=== PATIENT | female | born 1970 | race African-American/Black ===

== ENCOUNTER 2018-10-26 00:07 | Emergency (ER) | payer OTHER ==
--- NOTE | 2018-10-26 01:20 | PDOC ---
Attending Attestation - HPI HPI: 10/26/18 01:54 The patient is a 48 year old female with a PMH of HTN, HLD, and borderline DM who presents to the ER with chest pain prior to arrival. Patient describes the chest pain as localized on the left side, under the breast that resolved on its own shortly after. Patient had a stress test recently. Denies any symptoms currently. The patient denies shortness of breath, headache and dizziness. Denies fever, chills, nausea, vomit, diarrhea and constipation. Denies dysuria, frequency, urgency and hematuria. Allergies: NKA Past surgical history: None reported. Social history: No reported alcohol, drug or cigarette use. PCP: Dr. Nikunj Jeffery - Physicial Exam PE: 10/26/18 01:54 Agrees with resident's exam. 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
--- NOTE | 2018-10-26 01:24 | PDOC ---
History of Present Illness - General Chief Complaint: Chest Pain Stated Complaint: CHEST PAIN Time Seen by Provider: 10/26/18 01:16 History Source: Patient, Family Exam Limitations: Clinical Condition - History of Present Illness Initial Comments: 10/26/18 02:09 Patient is a 48F with history of HTN, HLD here today complaining of chest pain that onset at midnight tonight. Patient describes a stabbing pain that suddenly onset and lasted for a few minutes before resolving on it's own. No modifying factors. Denies fevers, chills, nausea, vomiting. Denies leg swelling, recent travel, history of blood clots. Patient has normal stress test one year ago, has pcp and cards follow up available. Patient is currently not in pain. Past History - Past Medical History Allergies/Adverse Reactions: Allergies Allergy/AdvReac Type Severity Reaction Status Date / Time No Known Allergies Allergy Verified 10/26/18 00:52 Home Medications: Ambulatory Orders Metoprolol Succinate [Toprol Xl] 50 mg PO DAILY 04/11/14 Aspirin [ASA -] 81 mg PO DAILY 03/11/16 Liraglutide [Saxenda] 3 mg SQ DAILY 03/11/16 Telmisartan/Hydrochlorothiazid [Micardis Hct 40-12.5 mg Tablet] 1 each PO DAILY 03/11/16 Anemia: Yes Asthma: No Cancer: No Cardiac Disorders: No CVA: No COPD: No CHF: No Dementia: No Diabetes: No GI Disorders: No Disorders: No HTN: Yes Hypercholesterolemia: Yes Liver Disease: No Seizures: No Thyroid Disease: No - Surgical History Abdominal Surgery: No Appendectomy: No Cardiac Surgery: No Cholecystectomy: No Lung Surgery: No Neurologic Surgery: No Orthopedic Surgery: Yes ([facility]) - Immunization History Immunization Up to Date: Yes - Suicide/Smoking/Psychosocial Hx Smoking Status: Yes Smoking History: Never smoked Have you smoked in the past 12 months: No Number of Cigarettes Smoked Daily: 2 Information on smoking cessation initiated: No 'Breaking Loose' booklet given: 04/27/13 Hx Alcohol Use: No Drug/Substance Use Hx: No Substance Use Type: None Hx Substance Use Treatment: No Review of Systems - Review of Systems Able to Perform ROS?: Yes Comments:: 10/26/18 02:14 GENERAL/CONSTITUTIONAL: No fever or chills. No weakness. HEAD, EYES, EARS, NOSE AND THROAT: No change in vision. No sore throat. CARDIOVASCULAR: + chest pain or shortness of breath RESPIRATORY: No cough, wheezing, or hemoptysis. GASTROINTESTINAL: No nausea, vomiting, diarrhea or constipation. GENITOURINARY: No dysuria, frequency, or change in urination. MUSCULOSKELETAL: No joint or muscle swelling or pain. No neck or back pain. SKIN: No rash NEUROLOGIC: No headache, vertigo, loss of consciousness, or change in strength/ sensation. HEMATOLOGIC/LYMPHATIC: No anemia, easy bleeding, or history of blood clots. ALLERGIC/IMMUNOLOGIC: No hives or skin allergy. *Physical Exam - Vital Signs Last Vital Signs Temp Pulse Resp BP Pulse Ox 98.1 F 69 18 114/86 99 10/26/18 00:07 10/26/18 00:07 10/26/18 00:07 10/26/18 00:07 10/26/18 00:07 - Physical Exam Comments: 10/26/18 02:14 GENERAL: Awake, alert, and fully oriented, in no acute distress HEAD: No signs of trauma, normocephalic, atraumatic EYES: PERRLA, EOMI, sclera anicteric, conjunctiva clear ENT: Auricles normal inspection, hearing grossly normal, nares patent, oropharynx clear without exudates. Moist mucosa NECK: Normal ROM, supple, no lymphadenopathy, JVD, or masses LUNGS: No distress, speaks full sentences, clear to auscultation bilaterally HEART: Regular rate and rhythm, normal S1 and S2, no murmurs, rubs or gallops, peripheral pulses normal and equal bilaterally. ABDOMEN: Soft, nontender, normoactive bowel sounds. No guarding, no rebound. No masses EXTREMITIES: Normal inspection, Normal range of motion, no edema. No clubbing or cyanosis. NEUROLOGICAL: Cranial nerves II through XII grossly intact. Normal speech, normal gait, no focal sensorimotor deficits SKIN: Warm, Dry, normal turgor, no rashes or lesions noted. Moderate Sedation - Procedure Monitoring Vital Signs: Procedure Monitoring Vital Signs Temperature 98.1 F 10/26/18 00:07 Pulse Rate 69 10/26/18 00:07 Respiratory Rate 18 10/26/18 00:07 Blood Pressure 114/86 10/26/18 00:07 O2 Sat by Pulse Oximetry (%) 99 10/26/18 00:07 ED Treatment Course - LABORATORY CBC & Chemistry Diagram: 10/26/18 01:49 10/26/18 01:49 Medical Decision Making - Medical Decision Making 10/26/18 02:17 Patient is 48F with history of HTN, HLD here today with chest pain. Vitals normal and stable. PERC negative. EKG shows nsr with no st elevations/ depressions. No significant t wave abnormalities, normal axis, normal intervals. 10/26/18 06:07 CXR clear. Trop neg. CBC, CMP reassuring. Patient discharged with primary care and cardiology follow up. *DC/Admit/Observation/Transfer Diagnosis at time of Disposition: Chest pain - Discharge Dispostion Disposition: HOME Condition at time of disposition: Good Decision to Admit order: No - Referrals Referrals: Nikunj Jeffery MD [Primary Care Provider] - - Patient Instructions Printed Discharge Instructions: DI for Atypical Chest Pain Additional Instructions: Please follow up with your primary care doctor tomorrow. Please return if you have any new, worsening or concerning symptoms, especially fever, increasing pain and shortness of breath. - Post Discharge Activity
[2018-10-26 01:48] VITALS: BP 114/86; PULSE 69; TEMP 98.1; BMI 33.6
[2018-10-26 02:08] LABS: INR 0.98 (0.83-1.09); PROTHROMBIN TIME (PATIENT) 11.6 SEC (9.7-13.0)
[2018-10-26 02:33] LABS: HEMATOCRIT 34.1 % (32.4-45.2); HEMOGLOBIN 11.6 GM/dL (10.7-15.3); MCH 28.1 pg (25.7-33.7); MEAN CELL VOLUME 82.6 fl (80-96); MEAN PLT VOLUME 9.3 fl (7.5-11.1); PLATELET COUNT 270 K/MM3 (134-434); RBC 4.13 M/mm3 (3.60-5.2)
[2018-10-26 02:47] LABS: ALBUMIN 3.7 g/dl (3.4-5.0); ALK PHOS 86 U/L (45-117); ANION GAP 4 MMOL/L (8-16); BILIRUBIN,TOTAL 0.2 mg/dL (0.2-1); BLOOD UREA NITROGEN 16 mg/dL (7-18); CALCIUM 8.9 mg/dL (8.5-10.1); CHLORIDE 106 mmol/L (98-107); CO2 30 mmol/L (21-32); CREATININE 0.7 mg/dL (0.55-1.3); GLUCOSE,RANDOM 154 mg/dL (74-106); POTASSIUM 3.6 mmol/L (3.5-5.1); SGOT/AST 12 U/L (15-37); SGPT/ALT 22 U/L (13-61); SODIUM 140 mmol/L (136-145); TOT PROT 7.1 g/dl (6.4-8.2)
--- NOTE | 2018-10-29 18:11 | EKG ---
Test Reason : Blood Pressure : / mmHG Vent. Rate : 071 BPM Atrial Rate : 071 BPM P-R Int : 168 ms QRS Dur : 108 ms QT Int : 418 ms P-R-T Axes : 024 009 018 degrees QTc Int : 454 ms NORMAL SINUS RHYTHM VOLTAGE CRITERIA FOR LEFT VENTRICULAR HYPERTROPHY NONSPECIFIC T WAVE ABNORMALITY ABNORMAL ECG WHEN COMPARED WITH ECG OF 24-DEC-2009 00:10, NO SIGNIFICANT CHANGE WAS FOUND Confirmed by MD MARLON, SYLVIA ([id number]) on 10/29/2018 6:10:31 PM Referred By: Confirmed By:SYLVIA MASON MD
== END 2018-10-26 04:05 | disposition home or self-care (01) ==
LOC: JER 00:07
DX: R07.9 Chest pain, unspecified (principal); I10 Essential (primary) hypertension; E78.5 Hyperlipidemia, unspecified; Z72.0 Tobacco use
CPT/HCPCS: 36415; 71046-TC-FY; 80053; 82550; 82553; 84484; 85027; 85610; 93005; 93010; 99282-25

== ENCOUNTER 2019-06-06 18:33 | Emergency (ER) | payer OTHER ==
[2019-06-06 19:22] VITALS: TEMP 98.7; BMI 36.1
[2019-06-06 20:23] LABS: BASO % 0.8 % (0-2.0); EOS % 2.2 % (0-4.5); HEMOGLOBIN 11.3 GM/dL (10.7-15.3); MCH 26.7 pg (25.7-33.7); MCHC 32.4 g/dl (32.0-36.0); MEAN CELL VOLUME 82.6 fl (80-96); MEAN PLT VOLUME 9.1 fl (7.5-11.1); MONO % 6.2 % (3.8-10.2); NEUT % 67.8 % (42.8-82.8); PLATELET COUNT 282 K/MM3 (134-434); RBC 4.23 M/mm3 (3.60-5.2); RDW 14.2 % (11.6-15.6); WHITE BLOOD COUNT 10.1 K/mm3 (4.0-10.0)
[2019-06-06] MEDS ORDERED: IBUPROFEN 400 MG TABLET (FP) PO ONE ×2 (20:24→20:25)
[2019-06-06 20:54] LABS: ALBUMIN 4.2 g/dl (3.4-5.0); BILIRUBIN,TOTAL 0.2 mg/dL (0.2-1); BLOOD UREA NITROGEN 12.7 mg/dL (7-18); CREATININE 0.6 mg/dL (0.55-1.3); POTASSIUM 3.7 mmol/L (3.5-5.1); TOT PROT 7.7 g/dl (6.4-8.2)
--- NOTE | 2019-06-06 20:59 | PDOC ---
History of Present Illness - General Chief Complaint: Shortness of Breath Stated Complaint: SOB/BACK PAIN Time Seen by Provider: 06/06/19 18:50 History Source: Patient Exam Limitations: No Limitations - History of Present Illness Is this a multiple visit Asthma Patient?: No Timing/Duration: reports: this morning (she awoke with left scapular pain and pain upon dep breaths) Possible Cause: Yes: no prior episodes Modifying Factors: improves with: other (she flew to [facility] over the weekend ) Associated Symptoms: reports: other (left scapular pain that radiates to left side) Past History - Past Medical History Allergies/Adverse Reactions: Allergies Allergy/AdvReac Type Severity Reaction Status Date / Time No Known Allergies Allergy Verified 10/26/18 00:52 Home Medications: Ambulatory Orders Metoprolol Succinate [Toprol Xl] 50 mg PO DAILY 04/11/14 Aspirin [ASA -] 81 mg PO DAILY 03/11/16 Liraglutide [Saxenda] 3 mg SQ DAILY 03/11/16 Telmisartan/Hydrochlorothiazid [Micardis Hct 40-12.5 mg Tablet] 1 each PO DAILY 03/11/16 Anemia: Yes Asthma: No Cancer: No Cardiac Disorders: No CVA: No COPD: No CHF: No Dementia: No Diabetes: No GI Disorders: No Disorders: No HTN: Yes Hypercholesterolemia: Yes Liver Disease: No Seizures: No Thyroid Disease: No - Surgical History Abdominal Surgery: No Appendectomy: No Cardiac Surgery: No Cholecystectomy: No Lung Surgery: No Neurologic Surgery: No Orthopedic Surgery: Yes ([facility]) - Immunization History Immunization Up to Date: Yes - Psycho Social/Smoking Cessation Hx Smoking Status: Yes Smoking History: Current some day smoker Have you smoked in the past 12 months: Yes Number of Cigarettes Smoked Daily: 2 Information on smoking cessation initiated: No 'Breaking Loose' booklet given: 04/27/13 Hx Alcohol Use: No Drug/Substance Use Hx: No Substance Use Type: None Hx Substance Use Treatment: No Respiratory Specific PMHX - Complaint Specific PMHX Hx Bronchitis: No Hx Pneumonia: No Hx Pulmonary Embolus: No Hx TB (Tuberculosis): No Hx Angina: No *Physical Exam - Vital Signs Last Vital Signs Temp Pulse Resp BP Pulse Ox 98.7 F 18 L 22 H 138/88 99 06/06/19 19:10 06/06/19 19:10 06/06/19 19:10 06/06/19 19:10 06/06/19 19:10 - Physical Exam General Appearance: Yes: Nourished, Appropriately Dressed HEENT: positive: Normal Voice Neck: positive: Supple Respiratory/Chest: positive: Lungs Clear Cardiovascular: positive: Regular Rhythm, Regular Rate Gastrointestinal/Abdominal: positive: Soft Musculoskeletal: positive: Normal Inspection Extremity: positive: Normal Range of Motion Integumentary: positive: Normal Color, Warm Neurologic: positive: Fully Oriented, Alert, Motor Strength 12/18 ED Treatment Course - LABORATORY CBC & Chemistry Diagram: 06/06/19 20:07 06/06/19 20:07 - ADDITIONAL ORDERS Additional order review: Laboratory Results 06/06/19 06/06/19 06/06/19 20:07 20:07 20:07 D-Dimer 250 Sodium 140 Potassium 3.7 Chloride 105 Carbon Dioxide 27 Anion Gap 8 BUN 12.7 Creatinine 0.6 Est GFR (CKD-EPI)AfAm 122.32 Est GFR (CKD-EPI)NonAf 105.54 Random Glucose 84 Calcium 9.0 Total Bilirubin 0.2 AST 27 ALT 32 Alkaline Phosphatase 86 Troponin I Total Protein 7.7 Albumin 4.2 Serum , Qual Negative 06/06/19 19:34 D-Dimer Sodium Potassium Chloride Carbon Dioxide Anion Gap BUN Creatinine Est GFR (CKD-EPI)AfAm Est GFR (CKD-EPI)NonAf Random Glucose Calcium Total Bilirubin AST ALT Alkaline Phosphatase Troponin I < 0.02 Total Protein Albumin Serum , Qual 06/06/19 20:07 RBC 4.23 MCV 82.6 MCHC 32.4 RDW 14.2 MPV 9.1 Neutrophils % 67.8 Lymphocytes % 23.0 D Monocytes % 6.2 Eosinophils % 2.2 Basophils % 0.8 - RADIOLOGY Radiology Studies Ordered: Category Date Time Status CHEST PA & LAT [RAD] Stat Radiology 06/06/19 19:30 Taken - Medications Given in the ED: ED Medications Discontinued Medications Generic Name Dose Route Start Last Admin Trade Name Freq PRN Reason Stop Dose Admin Ibuprofen 800 mg 06/06/19 20:24 06/06/19 20:28 Motrin - PO 06/06/19 20:25 800 mg ONCE ONE Administration Medical Decision Making - Medical Decision Making 06/07/19 00:04 49-year-old female has complaint of scapular back pain radiating to the left side and shortness of breath and pleuretic pain upon inspiration. She did take an airplane flight this weekend to [place] and back 06/07/19 00:06 06/07/19 01:14 CAT scan to rule out dissection findings Negative for any thoracic aortic aneurysm or dissection There is a tiny vague infiltrate in the right lower lobe medially. No other pulmonary infiltrates No pleural effusions no pneumothorax or pneumomediastinum The study Is negative for any abdominal aortic aneurysm or dissection fatty liver Normal spleen pancreas, gallbladder, adrenal glands Nonobstructing right renal stone no acute renal abnormality or urinary tract obstruction No free intraperitoneal fluid or free air Osseous and stretch structures are intact pt's work up reveals negative cardiac enzymes, no evidence of pneumothorax,no aneurysm or dissection ekg is NS @ 83 bpm,LVH,prolonged QT imp muscle skeletal Discharge - Discharge Information Problems reviewed: Yes Clinical Impression/Diagnosis: Pleuritic chest pain, Pain of left scapula Muscle strain of left scapular region Qualifiers: Encounter type: initial encounter Qualified Code(s): S46.912A - Strain of unspecified muscle, fascia and tendon at shoulder and upper arm level, left arm , initial encounter Condition: Good Disposition: HOME - Follow up/Referral Referrals: Nikunj Jeffery MD [Primary Care Provider] - - Patient Discharge Instructions Patient Printed Discharge Instructions: DI for Musculoskeletal Pain Additional Instructions: please rest Take Tylenol or NSAIDS for pain relief Return for worsening symptoms - Post Discharge Activity
[2019-06-06] MEDS ORDERED: CYCLOBENZAPRINE HCL 10 MG TABLET (FP) PO ONE (21:12)
[2019-06-06] MEDS ORDERED: CYCLOBENZAPRINE HCL 10 MG TABLET (FP) ONE (21:14)
[2019-06-06 23:09] VITALS: BP 114/76; PULSE 79
[2019-06-06] MEDS ORDERED: SODIUM CHLORIDE 1,000 ML IV STA (23:20)
--- NOTE | 2019-06-12 15:51 | EKG ---
Test Reason : Blood Pressure : / mmHG Vent. Rate : 083 BPM Atrial Rate : 083 BPM P-R Int : 168 ms QRS Dur : 106 ms QT Int : 410 ms P-R-T Axes : 061 000 035 degrees QTc Int : 481 ms NORMAL SINUS RHYTHM POSSIBLE LEFT ATRIAL ENLARGEMENT LEFT VENTRICULAR HYPERTROPHY PROLONGED QT ABNORMAL ECG WHEN COMPARED WITH ECG OF 26-OCT-2018 01:17, T WAVE VARIATION Confirmed by BETSY GTZ MD ([id number]) on 06/12/2019 3:51:19 PM Referred By: Confirmed By:BETSY GTZ MD
== END 2019-06-07 01:41 | disposition home or self-care (01) ==
LOC: JER 18:33
PROC: 3E0337Z Introduction of Electrolytic and Water Balance Substance into Peripheral Vein, Percutaneous Approach (ICD-10-PCS; principal; 2019-06-06)
DX: S46.812A Strain of other muscles, fascia and tendons at shoulder and upper arm level, left arm, initial encounter (principal); R07.89 Other chest pain; X58.XXXA Exposure to other specified factors, initial encounter; Y93.89 Activity, other specified; Y99.8 Other external cause status; I10 Essential (primary) hypertension; E78.00 Pure hypercholesterolemia, unspecified; Z86.2 Personal history of diseases of the blood and blood-forming organs and certain disorders involving the immune mechanism; Z79.82 Long term (current) use of aspirin; F17.210 Nicotine dependence, cigarettes, uncomplicated
CPT/HCPCS: 36415; 71046-TC-FY; 71275-TC; 74178-TC; 80053; 84484; 84703; 85025; 85379; 93005; 93010; 99284-25; J7030

== ENCOUNTER 2019-07-05 08:17 | Emergency (ER) | payer OTHER ==
[2019-07-05 08:28] VITALS: BP 148/79; PULSE 98; TEMP 100.2; BMI 36.6
[2019-07-05] MEDS ORDERED: KETOROLAC TROMETHAMINE 60 MG/2 ML VIAL IM ONE (09:09)
[2019-07-05] MEDS ORDERED: KETOROLAC TROMETHAMINE 60 MG/2 ML VIAL ONE (09:10)
[2019-07-05] MEDS ORDERED: SODIUM CHLORIDE 1,000 ML IV STA (09:17)
[2019-07-05] MEDS ORDERED: DEXAMETHASONE SOD PHOSPHATE 10 MG/1 ML VIAL IM ONE (09:18)
[2019-07-05] MEDS ORDERED: AMPICILLIN NA/SULBACTAM NA 1.5 GM in SODIUM CHLORIDE 100 ML IVPB ONE (09:18)
[2019-07-05] MEDS ORDERED: DEXAMETHASONE SOD PHOSPHATE 10 MG/1 ML VIAL ONE (09:22)
--- NOTE | 2019-07-05 09:44 | PDOC ---
History of Present Illness - General Chief Complaint: Sore Throat Stated Complaint: THROAT PAIN Time Seen by Provider: 07/05/19 08:39 History Source: Patient - History of Present Illness Timing/Duration: reports: yesterday Associated Symptoms: reports: fever/chills, sore throat Past History - Past Medical History Allergies/Adverse Reactions: Allergies Allergy/AdvReac Type Severity Reaction Status Date / Time No Known Allergies Allergy Verified 07/05/19 08:28 Home Medications: Ambulatory Orders Metoprolol Succinate [Toprol Xl] 50 mg PO DAILY 04/11/14 Aspirin [ASA -] 81 mg PO DAILY 03/11/16 Telmisartan/Hydrochlorothiazid [Micardis Hct 40-12.5 mg Tablet] 1 each PO DAILY 03/11/16 Amlodipine Besylate 5 mg PO DAILY 07/05/19 Amoxicillin/Potassium Clav [Amox-Clav 500-125 mg Tablet] 1 each PO BID #20 tablet 07/05/19 Amoxicillin/Potassium Clav [Amox-Clav 875-125 mg Tablet] 1 each PO BID #14 tablet 07/05/19 Ibuprofen [Motrin -] 600 mg PO QID #28 tablet 07/05/19 Ibuprofen [Motrin -] 800 mg PO Q6H #30 tablet 07/05/19 Simvastatin 20 mg PO DAILY 07/05/19 metFORMIN HCL [Metformin HCl] 500 mg PO BID 07/05/19 Anemia: Yes Asthma: No Cancer: No Cardiac Disorders: No CVA: No COPD: No CHF: No Dementia: No Diabetes: Yes GI Disorders: No Disorders: No HTN: Yes Hypercholesterolemia: Yes Liver Disease: No Seizures: No Thyroid Disease: No - Surgical History Abdominal Surgery: No Appendectomy: No Cardiac Surgery: No Cholecystectomy: No Lung Surgery: No Neurologic Surgery: No Orthopedic Surgery: Yes ([facility]) - Immunization History Immunization Up to Date: Yes - Psycho Social/Smoking Cessation Hx Smoking Status: Yes Smoking History: Never smoked Have you smoked in the past 12 months: Yes Number of Cigarettes Smoked Daily: 2 Information on smoking cessation initiated: No 'Breaking Loose' booklet given: 04/27/13 Hx Alcohol Use: No Drug/Substance Use Hx: No Substance Use Type: None Hx Substance Use Treatment: No Respiratory Specific PMHX - Complaint Specific PMHX Hx Bronchitis: No Hx Pneumonia: No Hx Pulmonary Embolus: No Hx TB (Tuberculosis): No Review of Systems - Review of Systems Constitutional: Yes: Fever, Malaise, Weakness HEENTM: Yes: Throat Pain. 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 negative: Lymphadenopathy (R), Lymphadenopathy (L) Respiratory/Chest: positive: Lungs Clear, Normal Breath Sounds. negative: Respiratory Distress Cardiovascular: positive: Regular Rate, S1, S2 Integumentary: positive: Dry, Warm Neurologic: positive: Fully Oriented, Alert, Normal Mood/Affect ED Treatment Course - Medications Given in the ED: ED Medications Discontinued Medications Generic Name Dose Route Start Last Admin Trade Name Freq PRN Reason Stop Dose Admin Ketorolac Tromethamine 60 mg 07/05/19 09:09 07/05/19 09:15 Toradol Injection - IM 07/05/19 09:10 60 mg ONCE ONE Administration Medical Decision Making - Medical Decision Making 07/05/19 09:19 49-year-old female history of HTN, recently diagnosed with diabetes, here with severe throat pain with dysphagi,a body aches and low-grade fever x2 days. No ear pain, cough, shortness of breath, nausea, vomiting, diarrhea or rash. No recent travel. 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 Rpt vitals improved. Dc w/ abx, pain control. Reasons to return d/w pt Discharge - Discharge Information Problems reviewed: Yes Clinical Impression/Diagnosis: Strep pharyngitis Condition: Improved Disposition: HOME - Additional Discharge Information Prescriptions: Amoxicillin/Potassium Clav [Amox-Clav 875-125 mg Tablet] 1 each PO BID #14 tablet Ibuprofen [Motrin -] 600 mg PO QID #28 tablet - Follow up/Referral Referrals: Nikunj Jeffery MD [Primary Care Provider] - - Patient Discharge Instructions Patient Printed Discharge Instructions: DI for Strep Throat Additional Instructions: Rest, drink plenty of fluids and take medications as directed If symptoms worsen return to ER - Post Discharge Activity Work/Back to School Note: Back to Work
[2019-07-05] MEDS ORDERED: ACETAMINOPHEN INJECTION 100 ML IVPB ONE (10:06)
[2019-07-05] MEDS ORDERED: ACETAMINOPHEN 1000 MG/100 ML VIAL (NON FORMULARY) IVPB ONE (10:06)
== END 2019-07-05 12:19 | disposition home or self-care (01) ==
LOC: JERFT 08:17
PROC: 3E033NZ Introduction of Analgesics, Hypnotics, Sedatives into Peripheral Vein, Percutaneous Approach (ICD-10-PCS; principal; 2019-07-05)
PROC: 3E03329 Introduction of Other Anti-infective into Peripheral Vein, Percutaneous Approach (ICD-10-PCS; 2019-07-05)
PROC: 3E0337Z Introduction of Electrolytic and Water Balance Substance into Peripheral Vein, Percutaneous Approach (ICD-10-PCS; 2019-07-05)
PROC: 3E023GC Introduction of Other Therapeutic Substance into Muscle, Percutaneous Approach (ICD-10-PCS; 2019-07-05)
PROC: 3E0233Z Introduction of Anti-inflammatory into Muscle, Percutaneous Approach (ICD-10-PCS; 2019-07-05)
DX: J02.0 Streptococcal pharyngitis (principal); I10 Essential (primary) hypertension; E11.9 Type 2 diabetes mellitus without complications; Z72.0 Tobacco use; E78.00 Pure hypercholesterolemia, unspecified
CPT/HCPCS: 87804; 87880; 99281-25; J0131; J1100; J7030

== ENCOUNTER 2020-01-23 16:14 | Emergency (ER) | payer OTHER ==
[2020-01-23 16:29] VITALS: BP 140/92; PULSE 82; TEMP 98.7; BMI 28.8
[2020-01-23 17:32] LABS: EPI CELLS 2 /uL (0-25.1); HYALINE CASTS 1 /uL (0-3.1); URINE APPEARANCE CLEAR; URINE BACTERIA 1437 /uL (0-1359); URINE BILIRUBIN NEGATIVE (NEGATIVE); URINE COLOR YELLOW; URINE GLUCOSE (UA) NEGATIVE (NEGATIVE); URINE KETONE NEGATIVE (NEGATIVE); URINE LEUK ESTERASE 2+ (NEGATIVE); URINE NITRITE NEGATIVE (NEGATIVE); URINE PROTEIN NEGATIVE (NEGATIVE); URINE RBC 6 /uL (0-23.9); URINE UROBILINOGEN 0.2 mg/dL (0.2-1.0); URINE WBC 203 /uL (0-25.8)
[2020-01-23] MEDS ORDERED: PHENAZOPYRIDINE HCL 100 MG TABLET (FP) PO ONE (17:54)
[2020-01-23] MEDS ORDERED: CEPHALEXIN MONOHYDRATE 500 MG CAPSULE (UD) PO ONE (17:54)
== END 2020-01-23 18:00 | disposition home or self-care (01) ==
LOC: JER 16:14
DX: N39.0 Urinary tract infection, site not specified (principal)
CPT/HCPCS: 81003; 87086; 87186; 99284-25

== ENCOUNTER 2020-03-21 21:42 | Emergency (ER) | payer OTHER ==
[2020-03-21] MEDS ORDERED: LIDOCAINE PATCH REMOVAL MC SCH (22:00)
[2020-03-21 22:03] VITALS: BP 131/83; PULSE 74; TEMP 97.9; BMI 30.4
[2020-03-21 22:18] LABS: EPI CELLS 2 /uL (0-25.1); HYALINE CASTS 0 /uL (0-3.1); PH,URINE 5.5 (5.0-8.0); URINE APPEARANCE TURBID; URINE BACTERIA 400 /uL (0-1359); URINE BILIRUBIN NEGATIVE (NEGATIVE); URINE COLOR YELLOW; URINE GLUCOSE (UA) NEGATIVE (NEGATIVE); URINE KETONE NEGATIVE (NEGATIVE); URINE LEUK ESTERASE 3+ (NEGATIVE); URINE NITRITE NEGATIVE (NEGATIVE); URINE PROTEIN 2+ (NEGATIVE); URINE RBC 1096 /uL (0-23.9); URINE UROBILINOGEN 0.2 mg/dL (0.2-1.0); URINE WBC 4074 /uL (0-25.8)
[2020-03-21 22:24] LABS: EOS % 1.5 % (0-4.5); HEMOGLOBIN 11.5 GM/dL (10.7-15.3); LYMPH % 20.7 % (8-40); MCH 27.4 pg (25.7-33.7); MCHC 32.9 g/dl (32.0-36.0); MEAN CELL VOLUME 83.4 fl (80-96); MEAN PLT VOLUME 9.1 fl (7.5-11.1); MONO % 6.4 % (3.8-10.2); NEUT % 70.4 % (42.8-82.8); PLATELET COUNT 284 K/MM3 (134-434); RBC 4.19 M/mm3 (3.60-5.2); RDW 13.6 % (11.6-15.6); WHITE BLOOD COUNT 11.5 K/mm3 (4.0-10.0)
[2020-03-21 22:36] LABS: INR 1.02 (0.83-1.09)
[2020-03-21 22:39] LABS: ACTIVATED PTT 32.2 SECONDS (25.2-36.5)
[2020-03-21 22:57] LABS: ALBUMIN 4.4 g/dl (3.4-5.0); BILIRUBIN,TOTAL 0.3 mg/dL (0.2-1); CALCIUM 9.8 mg/dL (8.5-10.1); CREATININE 0.8 mg/dL (0.55-1.3); POTASSIUM 3.6 mmol/L (3.5-5.1); TOT PROT 8.3 g/dl (6.4-8.2)
[2020-03-21] MEDS ORDERED: LIDOCAINE 5% TOPICAL PATCH TP ONE (23:20)
[2020-03-21] MEDS ORDERED: LIDOCAINE 5% TOPICAL PATCH ONE (23:27)
--- NOTE | 2020-03-21 23:33 | PDOC ---
Documentation entered by Rosalind Yi SCRIBE, acting as scribe for Latia Whalen DO. Latia Whalen DO: This documentation has been prepared by the Kd lundy Brenda, SCRIBE, under my direction and personally reviewed by me in its entirety. I confirm that the documentation accurately reflects all work, treatment, procedures, and medical decision making performed by me. History of Present Illness - General Stated Complaint: BLOOD IN URINE Time Seen by Provider: 03/21/20 21:43 History Source: Patient Exam Limitations: No Limitations - History of Present Illness Initial Comments: 03/21/20 21:56 The patient is a 50 year old female with a significant PMH of DM, HLD, anemia and a herniated disc who presents to the ED for evaluation of hematuria with clots since this morning upon waking up. Patient notes that her last UTI was 6 weeks ago, where she was tried with Keflex to full relief. Patient also notes a 1 week history of right flank pain, but does not chronic back pain. Patient also notes dysuria. Reports vomiting due to being on Clindamycin since last week for tooth/gum infection. The patient denies chest pain, shortness of breath, headache and dizziness. Denies fever, chills, nausea, diarrhea and constipation. Denies vaginal itching, burning or pain. PCP: Nikunj Jeffery \ Past History - Medical History Allergies/Adverse Reactions: Allergies Allergy/AdvReac Type Severity Reaction Status Date / Time No Known Allergies Allergy Verified 03/21/20 21:54 Home Medications: Ambulatory Orders Metoprolol Succinate [Toprol Xl] 50 mg PO DAILY 04/11/14 Aspirin [ASA -] 81 mg PO DAILY 03/11/16 Telmisartan/Hydrochlorothiazid [Micardis Hct 40-12.5 mg Tablet] 1 each PO DAILY 03/11/16 Amlodipine Besylate 5 mg PO DAILY 07/05/19 Amoxicillin/Potassium Clav [Amox-Clav 500-125 mg Tablet] 1 each PO BID #20 tablet 07/05/19 Amoxicillin/Potassium Clav [Amox-Clav 875-125 mg Tablet] 1 each PO BID #14 tablet 07/05/19 Ibuprofen [Motrin -] 600 mg PO QID #28 tablet 07/05/19 Ibuprofen [Motrin -] 800 mg PO Q6H #30 tablet 07/05/19 Simvastatin 20 mg PO DAILY 07/05/19 metFORMIN HCL [Metformin HCl] 500 mg PO BID 07/05/19 Cephalexin Monohydrate [Keflex -] 500 mg PO BID #14 capsule 01/23/20 Phenazopyridine HCl [Pyridium -] 100 mg PO BID #6 tablet 01/23/20 levoFLOXacin [Levaquin -] 500 mg PO DAILY #7 tablet 03/21/20 Anemia: Yes Asthma: No Cancer: No Cardiac Disorders: No CVA: No COPD: No CHF: No Dementia: No Diabetes: Yes GI Disorders: No Disorders: No HTN: Yes Hypercholesterolemia: Yes Liver Disease: No Seizures: No Thyroid Disease: No - Surgical History Abdominal Surgery: No Appendectomy: No Cardiac Surgery: No Cholecystectomy: No Lung Surgery: No Neurologic Surgery: No Orthopedic Surgery: Yes ([facility]) - Immunization History Immunization Up to Date: Yes - Psycho-Social/Smoking History Smoking Status: Yes Smoking History: Never smoked Have you smoked in the past 12 months: Yes Number of Cigarettes Smoked Daily: 2 'Breaking Loose' booklet given: 04/27/13 Review of Systems - Review of Systems Able to Perform ROS?: Yes Comments:: 03/21/20 22:32 GENERAL/CONSTITUTIONAL: No fever or chills. No weakness. HEAD, EYES, EARS, NOSE AND THROAT: No change in vision. No ear pain or discharge. No sore throat. CARDIOVASCULAR: No chest pain or shortness of breath. RESPIRATORY: No cough, wheezing, or hemoptysis. GASTROINTESTINAL: (+) Vomitting. No diarrhea or constipation. GENITOURINARY: (+) Dysuria (+) hematuria. MUSCULOSKELETAL: No joint or muscle swelling or pain. No neck or back pain. SKIN: No rash NEUROLOGIC: No headache, vertigo, loss of consciousness, or change in strength/sensation. ENDOCRINE: No increased thirst. No abnormal weight change. HEMATOLOGIC/LYMPHATIC: No anemia, easy bleeding, or history of blood clots. ALLERGIC/IMMUNOLOGIC: No hives or skin allergy. *Physical Exam - Physical Exam 03/21/20 21:55 GENERAL: Awake, alert, and fully oriented, in no acute distress HEAD: No signs of trauma EYES: PERRLA, EOMI, sclera anicteric, conjunctiva clear ENT: Auricles normal inspection, hearing grossly normal, nares patent, oropharynx clear without exudates. Moist mucosa NECK: Normal ROM, supple, no lymphadenopathy, JVD, or masses LUNGS: Breath sounds equal, clear to auscultation bilaterally. No wheezes, and no crackles HEART: Regular rate and rhythm, normal S1 and S2, no murmurs, rubs or gallops ABDOMEN: (+) Right lower flank tenderness. (+) Mild superpubic tenderness. Soft, normoactive bowel sounds. No guarding, no rebound. No masses EXTREMITIES: Normal range of motion, no edema. No clubbing or cyanosis. No cords, erythema, or tenderness NEUROLOGICAL: Cranial nerves II through XII grossly intact. Normal speech, normal gait SKIN: Warm, Dry, normal turgor, no rashes lesions noted. ED Treatment Course - LABORATORY CBC & Chemistry Diagram: 03/21/20 22:14 03/21/20 22:14 Medical Decision Making - Medical Decision Making 03/21/20 23:25 a/p: 50yo female with a 1d hx of hematuria and a few day hx of R flank pain -concern for uti vs renal colic -will send labs, ua, ucx, spiral ct -will monitor and reassess 03/21/20 23:26 pt with wbc 11 +uti had keflex in january for uti with ecoli will rx levaquin will recommend urology follow up stable for dc to home Discharge - Discharge Information Problems reviewed: Yes Clinical Impression/Diagnosis: Flank pain, UTI (urinary tract infection), Nephrolithiasis Condition: Stable Disposition: HOME - Admission No - Additional Discharge Information Prescriptions: levoFLOXacin [Levaquin -] 500 mg PO DAILY #7 tablet - Follow up/Referral Referrals: Nikunj Jeffery MD [Primary Care Provider] - Jolene Jeffery MD [Staff Physician] - - Patient Discharge Instructions Patient Printed Discharge Instructions: DI for Urinary Tract Infection (UTI), DI for Kidney Stones Additional Instructions: Please call me with any questions, . please take all antibiotics as prescribed. Please call Dr. Jolene Jeffery - urology for follow up. Please also follow up with your PMD. Please do not exercise heavily while taking levaquin. Please return to the ER with any further concerns or complaints. - Post Discharge Activity
== END 2020-03-22 00:05 | disposition home or self-care (01) ==
LOC: JER 21:42
DX: N20.0 Calculus of kidney (principal); N39.0 Urinary tract infection, site not specified; R10.9 Unspecified abdominal pain
CPT/HCPCS: 36415; 74176-TC; 80053; 81003; 85025; 85610; 85730; 86850; 86900; 86901; 87086; 87186; 99284-25

== ENCOUNTER 2020-11-21 08:59 | Emergency (ER) | payer OTHER ==
[2020-11-21 09:11] VITALS: BP 151/91; PULSE 87; TEMP 98.5; BMI 31.7
[2020-11-21] MEDS ORDERED: KETOROLAC TROMETHAMINE 60 MG/2 ML VIAL IM ONE (09:16)
[2020-11-21] MEDS ORDERED: CYCLOBENZAPRINE HCL 10 MG TABLET (FP) PO ONE (09:16)
[2020-11-21] MEDS ORDERED: KETOROLAC TROMETHAMINE 60 MG/2 ML VIAL ONE (09:20)
[2020-11-21] MEDS ORDERED: CYCLOBENZAPRINE HCL 10 MG TABLET (FP) ONE (09:20)
== END 2020-11-21 12:07 | disposition home or self-care (01) ==
LOC: JERFT 08:59
PROC: 3E023GC Introduction of Other Therapeutic Substance into Muscle, Percutaneous Approach (ICD-10-PCS; principal; 2020-11-21)
DX: M54.5 Low back pain (principal)
CPT/HCPCS: 72131-TC; 99284-25

== ENCOUNTER 2021-04-30 15:24 | Emergency (ER) | payer OTHER ==
[2021-04-30 15:38] VITALS: BP 129/89; PULSE 78; TEMP 97.8; BMI 33.9
[2021-04-30] MEDS ORDERED: ACETAMINOPHEN 325 MG TABLET (FP) PO ONE (15:45)
[2021-04-30] MEDS ORDERED: CYCLOBENZAPRINE HCL 10 MG TABLET (FP) PO ONE (15:45)
[2021-04-30] MEDS ORDERED: LIDOCAINE 5% TOPICAL PATCH TP ONE (15:45)
[2021-04-30] MEDS ORDERED: KETOROLAC TROMETHAMINE 60 MG/2 ML VIAL IM ONE (15:45)
[2021-04-30] MEDS ORDERED: ACETAMINOPHEN 325 MG TABLET (FP) ONE (15:47)
[2021-04-30] MEDS ORDERED: CYCLOBENZAPRINE HCL 10 MG TABLET (FP) ONE (15:48)
[2021-04-30] MEDS ORDERED: LIDOCAINE 5% TOPICAL PATCH ONE (15:48)
[2021-04-30] MEDS ORDERED: KETOROLAC TROMETHAMINE 30 MG/1 ML VIAL ONE (15:48)
[2021-04-30] MEDS ORDERED: LIDOCAINE PATCH REMOVAL MC SCH (22:00)
== END 2021-04-30 17:00 | disposition home or self-care (01) ==
LOC: JER 15:24
PROC: 3E0233Z Introduction of Anti-inflammatory into Muscle, Percutaneous Approach (ICD-10-PCS; principal; 2021-04-30)
DX: S16.1XXA Strain of muscle, fascia and tendon at neck level, initial encounter (principal); V48.4XXA Person boarding or alighting a car injured in noncollision transport accident, initial encounter; W17.89XA Other fall from one level to another, initial encounter; X50.0XXA Overexertion from strenuous movement or load, initial encounter
CPT/HCPCS: 72040-TC; 99284-25

== ENCOUNTER 2021-06-09 15:37 | Emergency (ER) | payer OTHER ==
[2021-06-09 15:56] VITALS: BP 137/85; PULSE 77; TEMP 98.1; BMI 32.8
[2021-06-09 17:40] LABS: BASO % 0.8 % (0-2.0); HEMOGLOBIN 11.2 GM/dL (10.7-15.3); LYMPH % 32.4 % (8-40); MCH 26.9 pg (25.7-33.7); MEAN CELL VOLUME 81.5 fl (80-96); MEAN PLT VOLUME 8.9 fl (7.5-11.1); MONO % 5.6 % (3.8-10.2); NEUT % 59.2 % (42.8-82.8); PLATELET COUNT 319 10^3/uL (134-434); RBC 4.18 M/mm3 (3.60-5.2); WHITE BLOOD COUNT 6.4 K/mm3 (4.0-10.0)
[2021-06-09 17:49] LABS: CHLORIDE 106 mmol/L (98-107); SODIUM 141 mmol/L (136-145)
[2021-06-09 17:52] LABS: ALBUMIN 3.6 g/dl (3.4-5.0); ANION GAP 5 MMOL/L (8-16); CO2 30 mmol/L (21-32); GLUCOSE,RANDOM 78 mg/dL (74-106)
[2021-06-09 17:55] LABS: CREATININE 0.7 mg/dL (0.55-1.3); SGOT/AST 16 U/L (15-37); SGPT/ALT 22 U/L (13-61)
[2021-06-09 17:57] LABS: BILIRUBIN,TOTAL 0.3 mg/dL (0.2-1); TOT PROT 7.6 g/dl (6.4-8.2)
[2021-06-09 17:58] LABS: ALK PHOS 62 U/L (45-117)
== END 2021-06-09 18:58 | disposition home or self-care (01) ==
LOC: JER 15:37
DX: R06.02 Shortness of breath (principal)
CPT/HCPCS: 36415; 71046-TC-FY; 80053; 82550; 82553; 83036; 84436; 84439; 84443; 84479; 84484; 85025; 93005; 93010; 99285-25; C9803; U0003; U0005

== ENCOUNTER 2021-12-11 17:27 | Emergency (ER) | payer OTHER ==
[2021-12-11] MEDS ORDERED: guaiFENesin 200 MG/10 ML 10 ML UNIT-DOSE CUPS PO ONE (18:41)
[2021-12-12 14:09] LABS: SARS-CoV-2 NAA Not Detected (Not Detected)
== END 2021-12-11 18:50 | disposition home or self-care (01) ==
LOC: JVIRT 17:27
DX: Z20.822 Contact with and (suspected) exposure to COVID-19 (principal)
CPT/HCPCS: 87804; C9803-CS; Q3014-GT; U0003; U0005

== ENCOUNTER 2022-02-27 08:20 | Emergency (ER) | payer OTHER ==
[2022-02-27 08:36] VITALS: BP 140/81; PULSE 97; TEMP 98.3; BMI 34.8
[2022-02-27] MEDS ORDERED: SODIUM CHLORIDE 0.9% 500 ML INFUS.BAG IV ONE (10:22)
[2022-02-27] MEDS ORDERED: BEBTELOVIMAB (EUA) 175 MG/2 ML VIAL IVPUSH ONE (10:22)
[2022-02-27] MEDS ORDERED: KETOROLAC TROMETHAMINE 30 MG/1 ML VIAL IVPB ONE (10:22)
[2022-02-27] MEDS ORDERED: KETOROLAC TROMETHAMINE 30 MG/1 ML VIAL ONE (10:38)
== END 2022-02-27 13:00 | disposition home or self-care (01) ==
LOC: JER 08:20
PROC: 3E0333Z Introduction of Anti-inflammatory into Peripheral Vein, Percutaneous Approach (ICD-10-PCS; principal; 2022-02-27)
PROC: 3E03329 Introduction of Other Anti-infective into Peripheral Vein, Percutaneous Approach (ICD-10-PCS; 2022-02-27)
DX: U07.1 COVID-19 (principal)
CPT/HCPCS: 0241U-QW; 96374; 96375; 99284-25; M0222; Q0222

== ENCOUNTER 2022-03-19 23:24 | Emergency (ER) | payer OTHER ==
[2022-03-19 23:50] VITALS: BP 127/82; PULSE 69; RESP 20; TEMP 97.8; BMI 34.1
[2022-03-19] MEDS ORDERED: SODIUM CHLORIDE 1,000 ML IV STA (23:53)
[2022-03-19] MEDS ORDERED: METOCLOPRAMIDE HCL INJECTION 10 MG/2 ML VIAL IVPB ONE (23:53)
[2022-03-20] MEDS ORDERED: METOCLOPRAMIDE HCL INJECTION 10 MG/2 ML VIAL ONE (00:11)
[2022-03-20 01:02] LABS: INR 1.05 (0.83-1.09); PROTHROMBIN TIME (PATIENT) 12.1 SEC (9.7-13.0)
[2022-03-20 01:03] LABS: EOS % 2.5 % (0-4.5); HEMATOCRIT 34.5 % (32.4-45.2); HEMOGLOBIN 11.2 GM/dL (10.7-15.3); LYMPH % 25.6 % (8-40); MCH 26.8 pg (25.7-33.7); MCHC 32.6 g/dl (32.0-36.0); MEAN CELL VOLUME 82.1 fl (80-96); MEAN PLT VOLUME 8.8 fl (7.5-11.1); MONO % 6.6 % (3.8-10.2); NEUT % 64.3 % (42.8-82.8); PLATELET COUNT 290 10^3/uL (134-434); RDW 13.5 % (11.6-15.6); WHITE BLOOD COUNT 6.7 K/mm3 (4.0-10.0)
[2022-03-20 01:15] LABS: BLOOD UREA NITROGEN 11.7 mg/dL (7-18); CALCIUM 8.9 mg/dL (8.5-10.1); MAGNESIUM 2.2 mg/dL (1.8-2.4)
[2022-03-20 01:18] LABS: CREATININE 0.8 mg/dL (0.55-1.3)
[2022-03-20 01:20] LABS: BILIRUBIN,TOTAL 0.2 mg/dL (0.2-1); TOT PROT 7.6 g/dl (6.4-8.2)
[2022-03-20] MEDS ORDERED: DEXAMETHASONE SOD PHOSPHATE 10 MG/1 ML VIAL IM ONE (03:33)
[2022-03-20] MEDS ORDERED: KETOROLAC TROMETHAMINE 15 MG/ML VIAL IVPUSH ONE (03:33)
[2022-03-20] MEDS ORDERED: KETOROLAC TROMETHAMINE 30 MG/1 ML VIAL ONE (03:40)
[2022-03-20] MEDS ORDERED: DEXAMETHASONE SOD PHOSPHATE 10 MG/1 ML VIAL ONE (03:40)
[2022-03-20 04:25] LABS: PH,URINE 7.5 (5.0-8.0); URINE APPEARANCE CLEAR; URINE BILIRUBIN NEGATIVE (NEGATIVE); URINE COLOR YELLOW; URINE GLUCOSE (UA) NEGATIVE (NEGATIVE); URINE KETONE NEGATIVE (NEGATIVE); URINE LEUK ESTERASE NEGATIVE (NEGATIVE); URINE NITRITE NEGATIVE (NEGATIVE); URINE PROTEIN NEGATIVE (NEGATIVE); URINE UROBILINOGEN 0.2 mg/dL (0.2-1.0)
== END 2022-03-20 04:00 | disposition home or self-care (01) ==
LOC: JER 23:24
PROC: 3E0233Z Introduction of Anti-inflammatory into Muscle, Percutaneous Approach (ICD-10-PCS; principal; 2022-03-19)
PROC: 3E033GC Introduction of Other Therapeutic Substance into Peripheral Vein, Percutaneous Approach (ICD-10-PCS; 2022-03-19)
PROC: 3E0333Z Introduction of Anti-inflammatory into Peripheral Vein, Percutaneous Approach (ICD-10-PCS; 2022-03-19)
PROC: 3E033GC Introduction of Other Therapeutic Substance into Peripheral Vein, Percutaneous Approach (ICD-10-PCS; 2022-03-19)
PROC: 3E0337Z Introduction of Electrolytic and Water Balance Substance into Peripheral Vein, Percutaneous Approach (ICD-10-PCS; 2022-03-19)
DX: R51.9 Headache, unspecified (principal)
CPT/HCPCS: 36415; 70450-TC; 70496-TC; 70498-TC; 80053; 81003; 83735; 85025; 85610; 85730; 99285-25; J1100; Q9967

== ENCOUNTER 2022-10-05 06:49 | Emergency (ER) | payer OTHER ==
[2022-10-05 07:03] VITALS: BP 152/97; PULSE 70; RESP 15; TEMP 98.7; BMI 35.7
== END 2022-10-05 08:16 | disposition home or self-care (01) ==
LOC: JER 06:49
DX: M79.601 Pain in right arm (principal)
CPT/HCPCS: 73030-TC-RT-FY; 73060-TC-RT-FY; 99284-25

== ENCOUNTER 2023-12-24 04:04 | Day surgery (SDC) | payer OTHER ==
[2023-12-20 11:50] VITALS: BMI 34.2
[2023-12-24] MEDS ORDERED: BUPIVACAINE HCL/PF 0.75% 10 ML VIAL ONE (07:31)
[2023-12-24 13:59] VITALS: RESP 20; TEMP 97.8
[2023-12-24] MEDS ORDERED: ACETAMINOPHEN 500 MG TABLET (FP) PO PRN (14:40)
[2023-12-24] MEDS: BUPIVACAINE 0.75% IN DEXTROSE/PF 2ML AMPULE NR ONE ×2 (14:40→14:51)
[2023-12-24] MEDS: LIDOCAINE HCL 1% PRESERVATIVE FREE - 30ML VIAL IJ ONE ×2 (14:40→14:47)
[2023-12-24 15:21] VITALS: BP 140/84; PULSE 70
== END 2023-12-24 15:33 | disposition home or self-care (01) ==
LOC: JASU-SURG 04:04
PROVIDERS: ATTEND Pain Medicine Pain Medicine
PROC: BR16YZZ Fluoroscopy of Lumbar Facet Joint(s) using Other Contrast (ICD-10-PCS; 2023-12-24)
PROC: 3E0T3BZ Introduction of Anesthetic Agent into Peripheral Nerves and Plexi, Percutaneous Approach (ICD-10-PCS; principal; 2023-12-24 18:00)
DX: M47.816 Spondylosis without myelopathy or radiculopathy, lumbar region (principal)
CPT/HCPCS: 76000-TC-FY